=== PATIENT | female | born 1990 | race American Indian/Alaskan Native ===

== ENCOUNTER 2017-11-11 11:10 | Emergency (ER) | payer MEDICAID, OTHER ==
[2017-11-11 11:26] VITALS: BP 124/69
--- NOTE | 2017-11-11 13:08 | Emergency Department Report ---
ED Chest Pain HPI - General Chief Complaint: Chest Pain Stated Complaint: CHEST PAIN Time Seen by Provider: 11/11/17 12:44 Source: patient Mode of arrival: Ambulatory Limitations: No Limitations - History of Present Illness Initial Comments: Patient is 27 years old female with no significant past medical history presented to the ER complaining of left-sided chest pain started 2 days ago while she was driving. Patient stated also she has some shortness of breath. Patient denied any injury or trauma. No fever or cough. MD Complaint: chest pain -: Sudden Pain Location: left chest Quality: squeezing - Related Data Previous Rx's Medication Instructions Recorded Last Taken Type Prednisone [Prednisone 10 mg 10 mg PO .TAPER #1 tab.ds.pk 12/14/14 Unknown Rx (6-Day Pack, 21 Tabs)] diphenhydrAMINE [Benadryl] 25 mg PO Q6HR PRN #30 capsule 12/14/14 Unknown Rx Allergies Allergy/AdvReac Type Severity Reaction Status Date / Time No Known Allergies Allergy Unverified 12/14/14 06:46 Heart Score - HEART Score History: Slightly suspicious EKG: Normal Age: < 45 Risk factors: No known risk factors Troponin: < normal limit HEART Score: 0 ED Review of Systems ROS: Stated complaint: CHEST PAIN Other details as noted in HPI Comment: All other systems reviewed and negative Constitutional: denies: chills, fever Respiratory: denies: cough, orthopnea Cardiovascular: chest pain Gastrointestinal: denies: abdominal pain, nausea, vomiting, diarrhea, constipation, hematemesis, melena, hematochezia Musculoskeletal: denies: back pain, arthralgia Neurological: denies: headache, weakness ED Past Medical Hx - Past Medical History Previous Medical History?: No - Surgical History Past Surgical History?: No - Social History Smoking Status: Current Every Day Smoker Substance Use Type: None - Medications Home Medications: Home Medications Medication Instructions Recorded Confirmed Last Taken Type Prednisone [Prednisone 10 mg 10 mg PO .TAPER #1 tab.ds.pk 12/14/14 Unknown Rx (6-Day Pack, 21 Tabs)] diphenhydrAMINE [Benadryl] 25 mg PO Q6HR PRN #30 capsule 12/14/14 Unknown Rx ED Physical Exam - General Limitations: No Limitations General appearance: alert, in no apparent distress - Head Head exam: Present: atraumatic, normocephalic, normal inspection - Eye Eye exam: Present: normal appearance, PERRL - ENT ENT exam: Present: normal exam, normal orophraynx, mucous membranes moist - Neck Neck exam: Present: normal inspection, full ROM. Absent: tenderness, meningismus, lymphadenopathy, thyromegaly - Respiratory Respiratory exam: Present: normal lung sounds bilaterally. Absent: respiratory distress, wheezes, rales, rhonchi, chest wall tenderness, accessory muscle use, decreased breath sounds, prolonged expiratory - Cardiovascular Cardiovascular Exam: Present: regular rate, normal rhythm, normal heart sounds - GI/Abdominal GI/Abdominal exam: Present: soft, normal bowel sounds. Absent: distended, tenderness, guarding, rebound, rigid, organomegaly, mass, bruit, pulsatile mass , hernia - Extremities Exam Extremities exam: Present: normal inspection, full ROM, normal capillary refill - Back Exam Back exam: Present: normal inspection, full ROM. Absent: tenderness, CVA tenderness (R), CVA tenderness (L), muscle spasm, paraspinal tenderness, vertebral tenderness - Neurological Exam Neurological exam: Present: alert, oriented X3, CN II-XII intact - Skin Skin exam: Present: warm, intact, normal color ED Course Vital Signs 11/11/17 11:23 Temperature 98.6 F Pulse Rate 104 H Blood Pressure 124/69 O2 Sat by Pulse 99 Oximetry ED Medical Decision Making - Lab Data Result diagrams: 11/11/17 13:24 11/11/17 13:24 - EKG Data -: EKG Interpreted by Ut EKG shows normal: sinus rhythm - EKG Data Interpretation: no acute changes - Radiology Data Radiology results: report reviewed Chest x-ray unremarkable for acute finding. Critical care attestation.: If time is entered above; I have spent that time in minutes in the direct care of this critically ill patient, excluding procedure time. ED Disposition Clinical Impression: Chest pain Disposition: DC-01 TO HOME OR SELFCARE Is pt being admited?: No Condition: Stable Instructions: Chest Pain (ED), Costochondritis (ED) Referrals: PRIMARY CARE,MD [Primary Care Provider] - 3-5 Days
[2017-11-11 13:43] LABS: Basophils # (Auto) 0.1 K/mm3 (0.0-0.1); Eosinophils # (Auto) 0.1 K/mm3 (0.0-0.4); Eosinophils % (Auto) 1.7 % (0.0-4.3); Hematocrit 38.2 % (30.3-42.9); Hemoglobin 12.6 gm/dl (10.1-14.3); Lymphocytes % (Auto) 27.5 % (13.4-35.0); Mean Corpuscular HGB Conc 33 % (30-34); Mean Corpuscular Hemoglobin 32 pg (28-32); Mean Corpuscular Volume 95 fl (79-97); Monocytes # (Auto) 0.7 K/mm3 (0.0-0.8); Monocytes % (Auto) 9.8 % (0.0-7.3); Platelet Count 285 K/mm3 (140-440); Red Cell Distribution Width 13.4 % (13.2-15.2)
[2017-11-11 14:04] LABS: Alanine Aminotransferase 8 units/L (7-56); BUN/Creatinine Ratio 26; Blood Urea Nitrogen 13 mg/dL (7-17); Calcium 8.8 mg/dL (8.4-10.2); Hemolysis Index 10
[2017-11-11 14:33] LABS: Albumin 4.2 g/dL (3.9-5)
--- NOTE | 2017-11-11 16:53 | XRay Report ---
FINAL REPORT EXAM: XR CHEST 1V AP HISTORY: chest pain TECHNIQUE: Single, portable chest x-ray. PRIORS: None. FINDINGS: Cardiac and mediastinal silhouette within normal limits. Lungs are normally expanded and grossly clear. No apparent pneumothorax. Bony thorax grossly unremarkable. IMPRESSION: 1. No acute findings.
== END 2017-11-11 16:32 | disposition home or self-care (01) ==
LOC: ED 11:10
DX: R07.89 Other chest pain (principal); R06.02 Shortness of breath; F17.200 Nicotine dependence, unspecified, uncomplicated
CPT/HCPCS: 36415; 71045; 80053; 84484; 84703; 85025; 85379; 99283

== ENCOUNTER 2017-11-11 19:41 | Emergency (ER) | payer SELFPAY ==
[2017-11-11 20:02] VITALS: BP 160/88
[2017-11-11] MEDS ORDERED: ASPIRIN PO ONE (20:29)
[2017-11-11 21:38] LABS: Basophils % (Auto) 0.5 % (0.0-1.8); Eosinophils # (Auto) 0.1 K/mm3 (0.0-0.4); Eosinophils % (Auto) 0.8 % (0.0-4.3); Hematocrit 37.8 % (30.3-42.9); Hemoglobin 12.5 gm/dl (10.1-14.3); Lymphocytes # (Auto) 2.4 K/mm3 (1.2-5.4); Lymphocytes % (Auto) 24.4 % (13.4-35.0); Mean Corpuscular HGB Conc 33 % (30-34); Mean Corpuscular Hemoglobin 31 pg (28-32); Mean Corpuscular Volume 95 fl (79-97); Monocytes # (Auto) 0.8 K/mm3 (0.0-0.8); Monocytes % (Auto) 8.4 % (0.0-7.3); Platelet Count 300 K/mm3 (140-440); Red Blood Count 3.97 M/mm3 (3.65-5.03); Red Cell Distribution Width 13.3 % (13.2-15.2)
[2017-11-11 21:52] LABS: BUN/Creatinine Ratio 26; Blood Urea Nitrogen 13 mg/dL (7-17); Calcium 9.2 mg/dL (8.4-10.2); Hemolysis Index 8
== END 2017-11-11 20:39 | disposition left against medical advice (07) ==
LOC: ED 19:41
DX: F41.9 Anxiety disorder, unspecified (principal); R07.9 Chest pain, unspecified; R42 Dizziness and giddiness; Z79.899 Other long term (current) drug therapy
CPT/HCPCS: 36415; 80048; 83735; 84484; 85025; 85379; 93005; 93010

== ENCOUNTER 2017-12-30 01:23 | Emergency (ER) | payer SELFPAY ==
--- NOTE | 2017-12-30 03:17 | Emergency Department Report ---
ED Neck Pain [facility] Chief Complaint: Neck Pain/Injury Stated Complaint: NECK PAIN Time Seen by Provider: 12/30/17 02:31 ED Review of Systems ROS: Stated complaint: NECK PAIN Other details as noted in HPI ED Past Medical Hx - Past Medical History Previous Medical History?: No - Surgical History Past Surgical History?: No - Social History Smoking Status: Never Smoker Substance Use Type: None - Medications Home Medications: Home Medications Medication Instructions Recorded Confirmed Last Taken Type Prednisone [Prednisone 10 mg 10 mg PO .TAPER #1 tab.ds.pk 12/14/14 Unknown Rx (6-Day Pack, 21 Tabs)] diphenhydrAMINE [Benadryl] 25 mg PO Q6HR PRN #30 capsule 12/14/14 Unknown Rx Metaxalone [Skelaxin] 800 mg PO TID #30 tablet 11/11/17 Unknown Rx Naproxen [Naprosyn] 500 mg PO BID #14 tablet 11/11/17 Unknown Rx Neck Pain Exam - Exam General: Vital signs noted. No distress. Alert and acting appropriately. ED Course Vital Signs 12/30/17 12/30/17 02:04 02:09 Temperature 98.1 F Pulse Rate 77 74 Respiratory 18 18 Rate Blood Pressure 109/69 109/69 O2 Sat by Pulse 99 109 H Oximetry Critical care attestation.: If time is entered above; I have spent that time in minutes in the direct care of this critically ill patient, excluding procedure time. ED Disposition Condition: Stable Referrals: PRIMARY CARE [Primary Care Provider] - 3-5 Days
--- NOTE | 2017-12-30 03:27 | Emergency Department Report ---
ED Neck Pain/Injury HPI - General Chief Complaint: Neck Pain/Injury Stated Complaint: NECK PAIN Time Seen by Provider: 12/30/17 02:31 Source: patient, family Mode of arrival: Ambulatory Limitations: No Limitations - History of Present Illness Initial Comments: This is 27-year-old patient here reports that she has neck pain and pain radiating down her left arm from her left neck since yesterday and denies any injury. She reports some numbness and tingling to left arm. 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 She says she was also here in September complaining of chest pain and she still has chest pain intermittently that she thinks is related to her neck and arm pain and she reported that she was having chest pain when she came in earlier. There is no documentation of chest pain on triage notes. Patient said pain comes and goes. Denies any swelling to her legs. Denies any shortness of breath. Her chest pain has been going for months and now she is having neck pain with radiation down to her left arm. Patient said when she was here today did a chest x-ray and did a test of her heart and some lab work and she was told that everything was fine and that it was chest muscle pain. She denies any trauma. She does drive long distances. Denies any control, denies any history of DVT. Upper and review of her records when she was here on 11/11/2017, patient had lab work to include CBC chemistry and EKG. She had d-dimer done and it was at 706.42 which is elevated but I did not find anywhere where patient had a scan to rule out pulmonary embolism. Complaint: neck pain, other (chest pain) -: Gradual, month(s) (patient reported this as been ongoing for months intermittently and she has been here for similar problem when she was having chest pain but they said that she was okay. She states that she is here because she is wondering why she is getting chest pain.) Place: home Radiation: chest, right upper extremity Severity scale (0 -10): 5 Quality: sharp Consistency: intermittent Improves With: none Worsens With: none Context: unknown Associated Symptoms: numbness, tingling. denies: headache, fever, weakness, vertigo, difficulty walking, swollen glands, difficulty swallowing, nausea, vomiting Treatments Prior to Arrival: none - Related Data Previous Rx's Medication Instructions Recorded Last Taken Type Prednisone [Prednisone 10 mg 10 mg PO .TAPER #1 tab.ds.pk 12/14/14 Unknown Rx (6-Day Pack, 21 Tabs)] diphenhydrAMINE [Benadryl] 25 mg PO Q6HR PRN #30 capsule 12/14/14 Unknown Rx Metaxalone [Skelaxin] 800 mg PO TID #30 tablet 11/11/17 Unknown Rx Naproxen [Naprosyn] 500 mg PO BID #14 tablet 11/11/17 Unknown Rx Cyclobenzaprine [Flexeril] 10 mg PO TID PRN #12 tablet 12/30/17 Unknown Rx Ibuprofen [Motrin] 600 mg PO Q8H PRN #15 tablet 12/30/17 Unknown Rx Allergies Allergy/AdvReac Type Severity Reaction Status Date / Time No Known Allergies Allergy Unverified 12/14/14 06:46 ED Review of Systems ROS: Stated complaint: NECK PAIN Other details as noted in HPI Constitutional: denies: chills, fever, weakness Eyes: denies: eye pain, eye discharge, vision change ENT: denies: ear pain, throat pain, epistaxis, congestion Respiratory: denies: cough, orthopnea, shortness of breath, SOB with exertion, SOB at rest, wheezing Cardiovascular: chest pain. denies: palpitations, dyspnea on exertion, orthopnea, edema, syncope, paroxysmal nocturnal dyspnea Gastrointestinal: denies: abdominal pain, nausea, vomiting Genitourinary: denies: dysuria Musculoskeletal: arthralgia. denies: back pain, joint swelling, myalgia Skin: denies: rash, lesions Neurological: numbness, paresthesias. denies: headache, weakness, confusion, abnormal gait, vertigo ED Past Medical Hx - Past Medical History Previous Medical History?: Yes Additional medical history: Chest pain - Surgical History Past Surgical History?: No - Family History Family history: no significant - Social History Smoking Status: Never Smoker Substance Use Type: None - Medications Home Medications: Home Medications Medication Instructions Recorded Confirmed Last Taken Type Prednisone [Prednisone 10 mg 10 mg PO .TAPER #1 tab.ds.pk 12/14/14 Unknown Rx (6-Day Pack, 21 Tabs)] diphenhydrAMINE [Benadryl] 25 mg PO Q6HR PRN #30 capsule 12/14/14 Unknown Rx Metaxalone [Skelaxin] 800 mg PO TID #30 tablet 11/11/17 Unknown Rx Naproxen [Naprosyn] 500 mg PO BID #14 tablet 11/11/17 Unknown Rx Cyclobenzaprine [Flexeril] 10 mg PO TID PRN #12 tablet 12/30/17 Unknown Rx Ibuprofen [Motrin] 600 mg PO Q8H PRN #15 tablet 12/30/17 Unknown Rx ED Physical Exam - General Limitations: No Limitations General appearance: alert, in no apparent distress - Head Head exam: Present: atraumatic, normocephalic, normal inspection - Eye Eye exam: Present: normal appearance, PERRL, EOMI Pupils: Present: normal accommodation - ENT ENT exam: Present: normal exam, normal orophraynx, mucous membranes moist, TM's normal bilaterally, normal external ear exam - Neck Neck exam: Present: normal inspection, full ROM, other (no C-spine tenderness). Absent: tenderness, meningismus, lymphadenopathy - Expanded Neck Exam Expanded Neck exam: Present: tenderness (left lateral neck posteriorly). Absent: midline deformity, anterior neck swelling, thyroid mass, carotid bruit, tracheal deviation - Respiratory Respiratory exam: Present: normal lung sounds bilaterally. Absent: respiratory distress, wheezes, rales, rhonchi, stridor, chest wall tenderness, accessory muscle use, decreased breath sounds, prolonged expiratory - Cardiovascular Cardiovascular Exam: Present: regular rate, normal rhythm, normal heart sounds. Absent: systolic murmur, diastolic murmur - GI/Abdominal GI/Abdominal exam: Present: soft, normal bowel sounds. Absent: distended, tenderness, guarding, rebound, rigid, organomegaly, mass, bruit, hernia - Extremities Exam Extremities exam: Present: normal inspection, full ROM, normal capillary refill , other (no clubbing, cyanosis or edema. +2 pulses to all extremities and no neurovascular compromise. No abrasion, contusion or laceration to extremities. Patient with full range of motion to all extremities. +5 strength in all extremities. No neurovascular compromise). Absent: tenderness, pedal edema, joint swelling, calf tenderness - Back Exam Back exam: Present: normal inspection, full ROM, other (ambulate without any difficulties). Absent: tenderness, CVA tenderness (R), CVA tenderness (L), muscle spasm, paraspinal tenderness, vertebral tenderness, rash noted - Neurological Exam Neurological exam: Present: alert, oriented X3, normal gait, reflexes normal, other (no focal neurological deficit). Absent: motor sensory deficit - Psychiatric Psychiatric exam: Present: normal affect, normal mood - Skin Skin exam: Present: warm, dry, intact, normal color. Absent: rash ED Course Vital Signs 12/30/17 12/30/17 12/30/17 02:04 02:09 04:00 Temperature 98.1 F 98.7 F Pulse Rate 77 74 68 Respiratory 18 18 16 Rate Blood Pressure 109/69 109/69 Blood Pressure 107/65 [Right] O2 Sat by Pulse 99 99 100 Oximetry - Reevaluation(s) Reevaluation #1: 12/30/17 03:32 Patient here for left neck pain and says she was here in the past for chest pain and she told and triage area that she was having chest pain on this admission with neck pain that radiated down her left arm. She said last Center here today did blood tests, EKG and chest x-ray and told her that she was fine that she has chest muscle pain. Patient had no follow-up per patient. I reviewed her records and noted that last and patient was here in 11/11 2017 she had elevated d-dimer of 706 but she did not have a CT a check for pulmonary embolism. I went back in room to speak to patient and she had left therefore called on the phone and told her that she needs to come back because we need to do CT scan of her chest to make sure she doesn't have a blood clot and she says she'll be back shortly. Reevaluation #2: 12/30/17 03:58 Patient is back in room and labs drawn and sent awaiting in lab work for CTA of chest. She is stable. Reevaluation #3: 12/30/17 04:28 Patient is stable at present. She does not have any chest pain. Awaiting CT scan. Labs reviewed and stable and EKG sinus rhythm at 72 bpm. ED Medical Decision Making - Lab Data Result diagrams: 12/30/17 03:41 12/30/17 03:41 Lab Results 12/30/17 12/30/17 12/30/17 Range/Units 03:41 03:41 03:41 WBC 8.9 (4.5-11.0) K/mm3 RBC 4.52 (3.65-5.03) M/mm3 Hgb 14.2 (10.1-14.3) gm/dl Hct 42.4 (30.3-42.9) % MCV 94 (79-97) fl MCH 32 (28-32) pg MCHC 34 (30-34) % RDW 13.6 (13.2-15.2) % Plt Count 323 (140-440) K/mm3 Lymph % (Auto) 27.3 (13.4-35.0) % [place] % (Auto) 8.3 H (0.0-7.3) % Eos % (Auto) 1.2 (0.0-4.3) % Baso % (Auto) 0.7 (0.0-1.8) % Lymph # 2.4 (1.2-5.4) K/mm3 [place] # 0.7 (0.0-0.8) K/mm3 Eos # 0.1 (0.0-0.4) K/mm3 Baso # 0.1 (0.0-0.1) K/mm3 Seg Neutrophils % 62.5 (40.0-70.0) % Seg Neutrophils # 5.6 (1.8-7.7) K/mm3 Sodium 136 L (137-145) mmol/L Potassium 4.3 (3.6-5.0) mmol/L Chloride 99.6 (98-107) mmol/L Carbon Dioxide 22 (22-30) mmol/L Anion Gap 19 mmol/L BUN 13 (7-17) mg/dL Creatinine 0.6 L (0.7-1.2) mg/dL Estimated GFR > 60 ml/min BUN/Creatinine Ratio 22 % Glucose 99 (65-100) mg/dL Calcium 9.4 (8.4-10.2) mg/dL Total Bilirubin 0.30 (0.1-1.2) mg/dL AST 16 (5-40) units/L ALT 10 (7-56) units/L Alkaline Phosphatase 33 L (35-129) units/L Total Creatine Kinase (30-135) units/L Troponin T (0.00-0.029) ng/mL Total Protein 8.2 (6.3-8.2) g/dL Albumin 4.7 (3.9-5) g/dL Albumin/Globulin Ratio 1.3 % HCG, Qual Negative (Negative) 12/30/17 Range/Units 03:41 WBC (4.5-11.0) K/mm3 RBC (3.65-5.03) M/mm3 Hgb (10.1-14.3) gm/dl Hct (30.3-42.9) % MCV (79-97) fl MCH (28-32) pg MCHC (30-34) % RDW (13.2-15.2) % Plt Count (140-440) K/mm3 Lymph % (Auto) (13.4-35.0) % [place] % (Auto) (0.0-7.3) % Eos % (Auto) (0.0-4.3) % Baso % (Auto) (0.0-1.8) % Lymph # (1.2-5.4) K/mm3 [place] # (0.0-0.8) K/mm3 Eos # (0.0-0.4) K/mm3 Baso # (0.0-0.1) K/mm3 Seg Neutrophils % (40.0-70.0) % Seg Neutrophils # (1.8-7.7) K/mm3 Sodium (137-145) mmol/L Potassium (3.6-5.0) mmol/L Chloride (98-107) mmol/L Carbon Dioxide (22-30) mmol/L Anion Gap mmol/L BUN (7-17) mg/dL Creatinine (0.7-1.2) mg/dL Estimated GFR ml/min BUN/Creatinine Ratio % Glucose (65-100) mg/dL Calcium (8.4-10.2) mg/dL Total Bilirubin (0.1-1.2) mg/dL AST (5-40) units/L ALT (7-56) units/L Alkaline Phosphatase (35-129) units/L Total Creatine Kinase 78 (30-135) units/L Troponin T < 0.010 (0.00-0.029) ng/mL Total Protein (6.3-8.2) g/dL Albumin (3.9-5) g/dL Albumin/Globulin Ratio % HCG, Qual (Negative) - EKG Data -: EKG Interpreted by Me (Dr. Flemister) EKG shows normal: sinus rhythm (72 bpm) Rate: normal - EKG Data Interpretation: no acute changes - Radiology Data Radiology results: report reviewed CTA chest done and dictated by radiology. Report reviewed by myself and the report below. Patient: DIANNE FITZPATRICK MR#: [id number] : 1990 Acct:[id number] Age/Sex: 27 / F ADM Date: 12/30/17 Loc: ED Attending Dr: Ordering Physician: TINO RINCON Date of Service: 12/30/17 Procedure(s): CT angio chest Accession Number(s): [id number] cc: TINO RINCON FINAL REPORT PROCEDURE: CT ANGIO CHEST TECHNIQUE: Computerized tomographic angiography of the chest was performed after the IV injection of iodinated nonionic contrast including image processing. The image data was postprocessed using 2-dimensional multiplanar reformatted (MPR) and 3-dimensional (MIP and/or volume rendered) techniques. HISTORY: chest pain COMPARISON: No prior studies are available for comparison. FINDINGS: Heart and pericardium: Normal. Thoracic aorta: Normal. Pulmonary vasculature: There is no evidence of pulmonary arterial emboli. Lymph nodes: No enlarged thoracic lymph nodes. Lungs: Normal. Pleural space: No effusion, thickening, or pneumothorax. Musculoskeletal structures: No significant abnormality. Upper abdominal structures: No significant abnormality. IMPRESSION: There is no evidence of pulmonary arterial emboli. The lungs are clear without infiltrate, effusion or pneumothorax. Transcribed By: [facility] Dictated By: YAHIR DOUGHERTY MD Electronically Authenticated By: YAHIR DOUGHERTY MD Signed Date/Time: 12/30/17507 DD/ 7 TD/TT: 12/30/17507 - Medical Decision Making ED course: This is a 19-year-old female presents to the emergency room complaining of neck pain that started yesterday this going on her left arm with some numbness and tingling to her left upper extremity. She says she was here in October and she had chest pain and she was worked up and it told her was muscles pain and she still have intermittent chest pain. Patient here to be evaluated because she says she is concerned but she did not follow up and says she did not know she was supposed to follow-up. Patient is examined by myself and she has some tenderness to palpate her posterior neck muscle but no vertebral or C-spine tenderness. She is neurologically intact without any weakness to her extremities and she has normal motor and sensory functions. Reflexes are normal. Patient had CBC, CMP , which were stable which is negative. She had cardiac troponin and CK done which were within normal limits. Patient had CT and she'll of the chest which was dictated by radiologist and report reviewed by myself and there are no acute findings. Laboratory findings and CT and she'll of the chest findings explained to patient in detail and she voiced understanding. A/P 1: Atypical chest pain-CT and she if the chest negative, EKG is stable and cardiac labs are stable. Referral to cardiology for further 2: Neck muscle strain-patient is stable and will be discharged home with prescription for Flexeril and Motrin 3: Numbness and tingling into the left upper extremity workup-patient with no neurological or neurovascular deficit and she is stable at present Patient discharged home a prescription for Flexeril and Motrin. Patient educated on labs, diagnostic studies and results, medication, diagnosis and need to follow-up with specialist for further evaluation of atypical chest pain. She voiced understanding and period Patient is stable and her vital signs are stable and she is in no acute distress. She is currently not having any numbness or tingling and to her left upper extremity nor is she having any chest pain but she still have some neck pain laterally. She says she is feeling better now that she had tests done because she was concerned. Discharge home with her friend in stable condition to follow up with director search and she voiced understanding of need to follow- up and I also explained to her that she should follow up with her primary care physician which she does have 1 and have her symptoms returned and she should return to the emergency room. - Differential Diagnosis pulmonary embolism, ACS, costochondritis, neck strain Critical care attestation.: If time is entered above; I have spent that time in minutes in the direct care of this critically ill patient, excluding procedure time. ED Disposition Clinical Impression: Atypical chest pain, Numbness and tingling of right upper extremity Neck muscle strain Qualifiers: Encounter type: initial encounter Qualified Code(s): S16.1XXA - Strain of muscle, fascia and tendon at neck level, initial encounter Disposition: TO HOME OR SELFCARE Is pt being admited?: No Does the pt Need Aspirin: No Condition: Stable Instructions: Chest Pain (ED), Muscle Strain (ED), Paresthesia (ED) Additional Instructions: Please follow up with orthopedic doctor regarding ongoing chest pain with numbness and tingling to left arm. Please follow-up with your primary care doctor for neck muscle strain. Take medication as prescribed but please do not drive or operate heavy machinery while taking Flexeril as this medication can cause drowsiness. If here chest pain return, if he develops shortness of breath, loss of sensation to extremity, return to the emergency room otherwise follow-up with primary care physician. Prescriptions: Cyclobenzaprine [Flexeril] 10 mg PO TID PRN #12 tablet PRN Reason: Muscle Spasm Ibuprofen [Motrin] 600 mg PO Q8H PRN #15 tablet PRN Reason: Pain Referrals: PRIMARY CARE, [Primary Care Provider] - 12/31/17 CONOR IVORY MD [Staff Physician] - 12/31/17 Forms: Accompanied Note, Work/School Release Form(ED)
[2017-12-30 03:59] LABS: Basophils # (Auto) 0.1 K/mm3 (0.0-0.1); Basophils % (Auto) 0.7 % (0.0-1.8); Eosinophils # (Auto) 0.1 K/mm3 (0.0-0.4); Eosinophils % (Auto) 1.2 % (0.0-4.3); Hematocrit 42.4 % (30.3-42.9); Hemoglobin 14.2 gm/dl (10.1-14.3); Lymphocytes # (Auto) 2.4 K/mm3 (1.2-5.4); Lymphocytes % (Auto) 27.3 % (13.4-35.0); Mean Corpuscular HGB Conc 34 % (30-34); Mean Corpuscular Hemoglobin 32 pg (28-32); Mean Corpuscular Volume 94 fl (79-97); Monocytes # (Auto) 0.7 K/mm3 (0.0-0.8); Monocytes % (Auto) 8.3 % (0.0-7.3); Platelet Count 323 K/mm3 (140-440); Red Blood Count 4.52 M/mm3 (3.65-5.03); Red Cell Distribution Width 13.6 % (13.2-15.2)
[2017-12-30 04:12] LABS: Alanine Aminotransferase 10 units/L (7-56); Albumin 4.7 g/dL (3.9-5); BUN/Creatinine Ratio 22; Blood Urea Nitrogen 13 mg/dL (7-17); Calcium 9.4 mg/dL (8.4-10.2); Hemolysis Index 30
[2017-12-30 04:29] VITALS: BP 107/65
--- NOTE | 2017-12-30 05:13 | Cat Scan Report ---
FINAL REPORT PROCEDURE: CT ANGIO CHEST TECHNIQUE: Computerized tomographic angiography of the chest was performed after the IV injection of iodinated nonionic contrast including image processing. The image data was postprocessed using 2-dimensional multiplanar reformatted (MPR) and 3-dimensional (MIP and/or volume rendered) techniques. HISTORY: chest pain COMPARISON: No prior studies are available for comparison. FINDINGS: Heart and pericardium: Normal. Thoracic aorta: Normal. Pulmonary vasculature: There is no evidence of pulmonary arterial emboli. Lymph nodes: No enlarged thoracic lymph nodes. Lungs: Normal. Pleural space: No effusion, thickening, or pneumothorax. Musculoskeletal structures: No significant abnormality. Upper abdominal structures: No significant abnormality. IMPRESSION: There is no evidence of pulmonary arterial emboli. The lungs are clear without infiltrate, effusion or pneumothorax.
== END 2017-12-30 05:30 | disposition home or self-care (01) ==
LOC: ED 01:23
DX: S16.1XXA Strain of muscle, fascia and tendon at neck level, initial encounter (principal); R07.89 Other chest pain; Z79.899 Other long term (current) drug therapy; X50.1XXA Overexertion from prolonged static or awkward postures, initial encounter; Y93.89 Activity, other specified; Y99.0 Civilian activity done for income or pay; Y92.89 Other specified places as the place of occurrence of the external cause
CPT/HCPCS: 36415; 71275; 80053; 82550; 84484; 84703; 85025; 93005; 93010; 99284; Q9967